=== PATIENT | female | born 1980 | race Caucasian/White ===

== ENCOUNTER 2021-07-07 10:04 | Inpatient (IN) | payer OTHER ==
[2021-07-07] MEDS ORDERED: ACETAMINOPHEN 325 MG TABLET (FP) PO PRN ×2 (10:23)
[2021-07-07] MEDS ORDERED: MAG HYDROX/AL HYDROX/SIMETH 30 ML UNIT-DOSE CUP PO PRN (10:23)
[2021-07-07] MEDS ORDERED: diazePAM 5 MG TABLET PO PRN (10:23)
[2021-07-07] MEDS ORDERED: NICOTINE 10 MG CARTRIDGE (INHALER) IH PRN (10:23)
[2021-07-07] MEDS ORDERED: MENTHOL/PHENOL 1 EACH UD MM PRN (10:23)
[2021-07-07] MEDS ORDERED: MAGNESIUM CITRATE 300 ML BOTTLE PO PRN (10:23)
[2021-07-07] MEDS ORDERED: ONDANSETRON *ODT* 4 MG TABLET SL PRN (10:23)
[2021-07-07] MEDS ORDERED: MAGNESIUM HYDROX 2400MG/30ML ORAL SUSPENSION 30 ML CUP PO PRN (10:23)
[2021-07-07] MEDS ORDERED: IBUPROFEN 400 MG TABLET (FP) PO PRN (10:23)
[2021-07-07] MEDS ORDERED: BISMUTH SUBSALICYLATE 262 MG/15 ML BTL PO PRN (10:23)
[2021-07-07 10:29] VITALS: BMI 43.7
[2021-07-07] MEDS: PRENATAL VITAMINS W/ FOLIC ACID TABLET (FP) PO SCH (11:59)
[2021-07-07] MEDS: METHOCARBAMOL 500 MG TABLET PO PRN ×2 (11:59→22:34)
[2021-07-07] MEDS: diazePAM 5 MG TABLET PO SCH ×3 (11:59→22:31)
[2021-07-07] MEDS: NICOTINE 21 MG/24 HOURS TOPICAL PATCH TD SCH (12:03)
[2021-07-07] MEDS: hydrOXYzine PAMOATE 25 MG CAPSULE (FP) PO SCH ×3 (14:06→22:31)
[2021-07-07 14:52] LABS: HEMATOCRIT 37.4 % (32.4-45.2); HEMOGLOBIN 12.1 GM/dL (10.7-15.3); MCH 28.8 pg (25.7-33.7); MCHC 32.4 g/dl (32.0-36.0); MEAN CELL VOLUME 88.9 fl (80-96); MEAN PLT VOLUME 8.6 fl (7.5-11.1); PLATELET COUNT 354 10^3/uL (134-434); RBC 4.21 M/mm3 (3.60-5.2); WHITE BLOOD COUNT 10.3 K/mm3 (4.0-10.0)
[2021-07-07 14:56] LABS: ALBUMIN 3.4 g/dl (3.4-5.0); BLOOD UREA NITROGEN 13.2 mg/dL (7-18); CALCIUM 9.1 mg/dL (8.5-10.1)
[2021-07-07 15:00] LABS: CREATININE 0.9 mg/dL (0.55-1.3)
[2021-07-07 15:01] LABS: BILIRUBIN,TOTAL 0.2 mg/dL (0.2-1); TOT PROT 7.2 g/dl (6.4-8.2)
[2021-07-07 17:58] LABS: HIV INTERPRETATION NEGATIVE (NEGATIVE)
[2021-07-07] MEDS ORDERED: MELATONIN 5 MG TABLETS PO SCH (22:00)
[2021-07-07] MEDS: QUEtiapine FUMARATE 100 MG TABLET (FP) PO SCH (22:31)
[2021-07-07] MEDS: THIAMINE HCL 100 MG TABLET (FP) PO SCH (22:31)
[2021-07-08] MEDS: hydrOXYzine PAMOATE 25 MG CAPSULE (FP) PO SCH ×5 (05:10→22:15)
[2021-07-08] MEDS: diazePAM 5 MG TABLET PO SCH ×4 (05:10→22:15)
[2021-07-08] MEDS: METHOCARBAMOL 500 MG TABLET PO PRN (10:28)
[2021-07-08] MEDS: PRENATAL VITAMINS W/ FOLIC ACID TABLET (FP) PO SCH (10:28)
[2021-07-08] MEDS: NICOTINE 21 MG/24 HOURS TOPICAL PATCH TD SCH (10:29)
[2021-07-08] MEDS: lamoTRIgine 25 MG TABLET PO SCH (10:32)
[2021-07-08] MEDS ORDERED: cloNIDine HCL 0.1 MG TABLET PO ONE (13:14)
[2021-07-08] MEDS: THIAMINE HCL 100 MG TABLET (FP) PO SCH (22:15)
[2021-07-08] MEDS: QUEtiapine FUMARATE 100 MG TABLET (FP) PO SCH (22:15)
[2021-07-09] MEDS: diazePAM 5 MG TABLET PO SCH ×3 (06:01→21:49)
[2021-07-09] MEDS: hydrOXYzine PAMOATE 25 MG CAPSULE (FP) PO SCH ×5 (06:02→21:49)
[2021-07-09] MEDS: PRENATAL VITAMINS W/ FOLIC ACID TABLET (FP) PO SCH (10:30)
[2021-07-09] MEDS: METHOCARBAMOL 500 MG TABLET PO PRN (10:30)
[2021-07-09] MEDS: lamoTRIgine 25 MG TABLET PO SCH (10:31)
[2021-07-09] MEDS: NICOTINE 21 MG/24 HOURS TOPICAL PATCH TD SCH (10:32)
[2021-07-09] MEDS: amLODIPine BESYLATE 10 MG TABLET (FP) PO SCH (12:45)
[2021-07-09] MEDS: THIAMINE HCL 100 MG TABLET (FP) PO SCH (21:49)
[2021-07-09] MEDS: QUEtiapine FUMARATE 100 MG TABLET (FP) PO SCH (21:49)
[2021-07-09] MEDS ORDERED: cloNIDine HCL 0.1 MG TABLET PO ONE (23:59)
[2021-07-10] MEDS: hydrOXYzine PAMOATE 25 MG CAPSULE (FP) PO SCH ×5 (06:16→22:29)
[2021-07-10] MEDS: diazePAM 5 MG TABLET PO SCH ×2 (06:17→17:03)
[2021-07-10] MEDS: PRENATAL VITAMINS W/ FOLIC ACID TABLET (FP) PO SCH (09:55)
[2021-07-10] MEDS: lamoTRIgine 25 MG TABLET PO SCH (09:55)
[2021-07-10] MEDS: METHOCARBAMOL 500 MG TABLET PO PRN (09:55)
[2021-07-10] MEDS: amLODIPine BESYLATE 10 MG TABLET (FP) PO SCH (09:55)
[2021-07-10] MEDS: NICOTINE 21 MG/24 HOURS TOPICAL PATCH TD SCH (09:56)
[2021-07-10] MEDS: METOPROLOL TARTRATE 50 MG TABLET (FP) PO SCH (13:52)
[2021-07-10 16:54] LABS: URINE APPEARANCE CLEAR; URINE BILIRUBIN NEGATIVE (NEGATIVE); URINE COLOR YELLOW; URINE GLUCOSE (UA) NEGATIVE (NEGATIVE); URINE KETONE NEGATIVE (NEGATIVE); URINE LEUK ESTERASE NEGATIVE (NEGATIVE); URINE NITRITE NEGATIVE (NEGATIVE); URINE PROTEIN NEGATIVE (NEGATIVE); URINE UROBILINOGEN 0.2 mg/dL (0.2-1.0)
[2021-07-10] MEDS: THIAMINE HCL 100 MG TABLET (FP) PO SCH (22:28)
[2021-07-10] MEDS: QUEtiapine FUMARATE 100 MG TABLET (FP) PO SCH (22:29)
[2021-07-11] MEDS: hydrOXYzine PAMOATE 25 MG CAPSULE (FP) PO SCH ×3 (05:10→14:56)
[2021-07-11] MEDS ORDERED: diazePAM 5 MG TABLET PO ONE (06:00)
[2021-07-11 09:48] VITALS: BP 135/89; PULSE 108; TEMP 98
[2021-07-11] MEDS: amLODIPine BESYLATE 10 MG TABLET (FP) PO SCH (10:18)
[2021-07-11] MEDS: METOPROLOL TARTRATE 50 MG TABLET (FP) PO SCH (10:18)
[2021-07-11] MEDS: PRENATAL VITAMINS W/ FOLIC ACID TABLET (FP) PO SCH (10:18)
[2021-07-11] MEDS: lamoTRIgine 25 MG TABLET PO SCH (10:18)
[2021-07-11] MEDS: NICOTINE 21 MG/24 HOURS TOPICAL PATCH TD SCH (10:20)
== END 2021-07-11 15:50 | disposition home or self-care (01) | DRG 773 ==
LOC: YASAS 10:04 → Y6N 10:35
PROVIDERS: ADMIT Allergy & Immunology; ATTEND Allergy & Immunology
PROC: HZ2ZZZZ Detoxification Services for Substance Abuse Treatment (ICD-10-PCS; principal; 2021-07-07)
DX: F10.230 Alcohol dependence with withdrawal, uncomplicated (principal); F13.230 Sedative, hypnotic or anxiolytic dependence with withdrawal, uncomplicated; F11.20 Opioid dependence, uncomplicated; F14.20 Cocaine dependence, uncomplicated; F12.20 Cannabis dependence, uncomplicated; F17.210 Nicotine dependence, cigarettes, uncomplicated; F19.282 Other psychoactive substance dependence with psychoactive substance-induced sleep disorder; F19.24 Other psychoactive substance dependence with psychoactive substance-induced mood disorder; F31.81 Bipolar II disorder; F43.10 Post-traumatic stress disorder, unspecified; E66.01 Morbid (severe) obesity due to excess calories; Z68.41 Body mass index [BMI] 40.0-44.9, adult; R76.11 Nonspecific reaction to tuberculin skin test without active tuberculosis
CPT/HCPCS: 36415; 71046-TC-FY; 80053; 81003; 81025; 85027; 86780; 87389; 93005; 93010; C9803; J0735; U0003; U0005

== ENCOUNTER 2022-08-05 09:50 | Inpatient (IN) | payer OTHER ==
[2022-08-05 10:44] VITALS: BMI 23.7
[2022-08-05] MEDS ORDERED: NALOXONE HCL (KLOXXADO) 8 MG SPRAY NS PRN (11:45)
[2022-08-05] MEDS ORDERED: hydrOXYzine PAMOATE 25 MG CAPSULE (FP) PO PRN (11:45)
[2022-08-05] MEDS ORDERED: POLYETHYLENE GLYCOL (HEALTHYLAX) 3350 17 GM PACKET PO PRN (11:45)
[2022-08-05] MEDS ORDERED: IBUPROFEN 400 MG TABLET (FP) PO PRN (11:45)
[2022-08-05] MEDS ORDERED: LOPERAMIDE HCL 2 MG CAPSULE PO PRN (11:45)
[2022-08-05] MEDS ORDERED: DICYCLOMINE HCL 10 MG CAPSULE PO PRN (11:45)
[2022-08-05] MEDS ORDERED: BISMUTH SUBSALICYLATE 524 MG/30 ML PO PRN (11:45)
[2022-08-05] MEDS ORDERED: MAG HYDROX/AL HYDROX/SIMETH 30 ML UNIT-DOSE CUP PO PRN (11:45)
[2022-08-05] MEDS ORDERED: MAGNESIUM HYDROX 2400MG/30ML ORAL SUSPENSION 30 ML CUP PO PRN (11:45)
[2022-08-05] MEDS ORDERED: NICOTINE POLACRILEX 2 MG GUM BUC PRN (11:45)
[2022-08-05] MEDS ORDERED: ONDANSETRON *ODT* 4 MG TABLET SL PRN (11:45)
[2022-08-05] MEDS ORDERED: ACETAMINOPHEN 325 MG TABLET (FP) PO PRN ×2 (11:45)
[2022-08-05] MEDS ORDERED: METOPROLOL TARTRATE 50 MG TABLET (FP) PO SCH ×2 (12:00→14:14)
[2022-08-05] MEDS ORDERED: methaDONE HCL 10 MG TABLET (FOR DETOX USE ONLY) PO ONE (14:36)
[2022-08-05] MEDS ORDERED: methaDONE HCL 10 MG TABLET (FOR DETOX USE ONLY) ONE (14:40)
[2022-08-05] MEDS: LORATADINE 10 MG TABLET PO SCH (15:54)
[2022-08-05] MEDS ORDERED: MELATONIN 5 MG TABLETS PO SCH (22:00)
[2022-08-05] MEDS: THIAMINE HCL 100 MG TABLET (FP) PO SCH (22:44)
[2022-08-05] MEDS: METOPROLOL TARTRATE 25 MG TABLET (FP) PO SCH (22:44)
[2022-08-06] MEDS: PRENATAL VITAMINS W/ FOLIC ACID TABLET (FP) PO SCH (10:24)
[2022-08-06] MEDS: METOPROLOL TARTRATE 25 MG TABLET (FP) PO SCH ×2 (10:24→22:01)
[2022-08-06] MEDS: amLODIPine BESYLATE 10 MG TABLET (FP) PO SCH (10:24)
[2022-08-06 10:36] LABS: HEMATOCRIT 38.1 % (32.4-45.2); MCH 26.9 pg (25.7-33.7); MCHC 31.5 g/dl (32.0-36.0); MEAN CELL VOLUME 85.5 fl (80-96); MEAN PLT VOLUME 7.3 fl (7.5-11.1); PLATELET COUNT 961 10^3/uL (134-434); RBC 4.46 M/mm3 (3.60-5.2); RDW 14.3 % (11.6-15.6); WHITE BLOOD COUNT 9.6 K/mm3 (4.0-10.0)
[2022-08-06] MEDS: cloNIDine HCL 0.1 MG TABLET PO PRN (10:43)
[2022-08-06] MEDS: LORATADINE 10 MG TABLET PO SCH (12:02)
[2022-08-06 12:05] LABS: CALCIUM 9.8 mg/dL (8.5-10.1)
[2022-08-06 12:06] LABS: ALBUMIN 2.6 g/dl (3.4-5.0); CREATININE 0.7 mg/dL (0.55-1.3)
[2022-08-06 12:08] LABS: BILIRUBIN,TOTAL 0.2 mg/dL (0.2-1); TOT PROT 7.1 g/dl (6.4-8.2)
[2022-08-06] MEDS: THIAMINE HCL 100 MG TABLET (FP) PO SCH (22:00)
[2022-08-06] MEDS: QUEtiapine FUMARATE 100 MG TABLET (FP) PO SCH (22:00)
[2022-08-06] MEDS ORDERED: guaiFENesin/D-METHORPHAN HB 10 ML UNIT-DOSE CUPS PO PRN (22:00)
[2022-08-06] MEDS: METHOCARBAMOL 500 MG TABLET PO PRN (22:01)
[2022-08-07] MEDS: METOPROLOL TARTRATE 25 MG TABLET (FP) PO SCH ×2 (09:48→21:57)
[2022-08-07] MEDS: METHOCARBAMOL 500 MG TABLET PO PRN ×2 (09:48→21:56)
[2022-08-07] MEDS: PRENATAL VITAMINS W/ FOLIC ACID TABLET (FP) PO SCH (09:48)
[2022-08-07] MEDS: cloNIDine HCL 0.1 MG TABLET PO PRN (09:48)
[2022-08-07] MEDS: amLODIPine BESYLATE 10 MG TABLET (FP) PO SCH (09:48)
[2022-08-07] MEDS: LORATADINE 10 MG TABLET PO SCH (09:48)
[2022-08-07] MEDS ORDERED: methaDONE HCL 10 MG TABLET (FOR DETOX USE ONLY) PO ONE (10:00)
[2022-08-07] MEDS: BENZOCAINE/MENTHOL (CHLORASEPTIC ) LOZENGE MM PRN (20:42)
[2022-08-07] MEDS: THIAMINE HCL 100 MG TABLET (FP) PO SCH (21:56)
[2022-08-07] MEDS: QUEtiapine FUMARATE 100 MG TABLET (FP) PO SCH (21:58)
[2022-08-08] MEDS: PRENATAL VITAMINS W/ FOLIC ACID TABLET (FP) PO SCH (10:25)
[2022-08-08] MEDS: LORATADINE 10 MG TABLET PO SCH (10:25)
[2022-08-08] MEDS: METOPROLOL TARTRATE 25 MG TABLET (FP) PO SCH ×2 (10:25→22:03)
[2022-08-08] MEDS: amLODIPine BESYLATE 10 MG TABLET (FP) PO SCH (10:25)
[2022-08-08] MEDS: IBUPROFEN 600 MG TABLET (FP) PO PRN (19:40)
[2022-08-08] MEDS: METHOCARBAMOL 500 MG TABLET PO PRN (19:40)
[2022-08-08] MEDS: QUEtiapine FUMARATE 100 MG TABLET (FP) PO SCH (22:03)
[2022-08-08] MEDS: THIAMINE HCL 100 MG TABLET (FP) PO SCH (22:03)
[2022-08-09] MEDS ORDERED: methaDONE HCL 10 MG TABLET (FOR DETOX USE ONLY) PO ONE (10:00)
[2022-08-09] MEDS: LORATADINE 10 MG TABLET PO SCH (10:29)
[2022-08-09] MEDS: PRENATAL VITAMINS W/ FOLIC ACID TABLET (FP) PO SCH (10:29)
[2022-08-09] MEDS: METOPROLOL TARTRATE 25 MG TABLET (FP) PO SCH ×2 (10:30→22:02)
[2022-08-09] MEDS: amLODIPine BESYLATE 10 MG TABLET (FP) PO SCH (10:30)
[2022-08-09] MEDS: IBUPROFEN 600 MG TABLET (FP) PO PRN (16:03)
[2022-08-09] MEDS: METHOCARBAMOL 500 MG TABLET PO PRN (17:45)
[2022-08-09] MEDS: BENZOCAINE/MENTHOL (CHLORASEPTIC ) LOZENGE MM PRN (17:47)
[2022-08-09] MEDS: QUEtiapine FUMARATE 100 MG TABLET (FP) PO SCH (22:02)
[2022-08-09] MEDS: THIAMINE HCL 100 MG TABLET (FP) PO SCH (22:02)
[2022-08-10 07:26] VITALS: BP 109/77; PULSE 98; RESP 16; TEMP 97.7
== END 2022-08-10 06:36 | disposition home or self-care (01) | DRG 773 ==
LOC: YASAS 09:50 → Y6N 13:41
PROVIDERS: ADMIT Allergy & Immunology; ATTEND Surgery
PROC: HZ2ZZZZ Detoxification Services for Substance Abuse Treatment (ICD-10-PCS; principal; 2022-08-05)
DX: F11.23 Opioid dependence with withdrawal (principal); F10.230 Alcohol dependence with withdrawal, uncomplicated; F14.20 Cocaine dependence, uncomplicated; F17.210 Nicotine dependence, cigarettes, uncomplicated; F20.9 Schizophrenia, unspecified; F19.24 Other psychoactive substance dependence with psychoactive substance-induced mood disorder; F19.282 Other psychoactive substance dependence with psychoactive substance-induced sleep disorder; I10 Essential (primary) hypertension; Z28.310 Unvaccinated for COVID-19; Z56.0 Unemployment, unspecified; Z59.00 Homelessness unspecified
CPT/HCPCS: 36415; 71045-TC-FY; 80053; 81025; 85027; 86780; C9803-CS; U0003; U0005